=== PATIENT | female | born 1985 | race African-American/Black ===

== ENCOUNTER 2016-10-07 08:27 | Emergency (ER) | payer SELFPAY ==
[~2016-10-07] VITALS: Ht 170.2 cm; Wt 81.6 kg
[~2016-10-07 08:27] MED LIST: PHENERGAN SUPP25 MG RECTAL; ZOFRAN4 MG ORAL
[2016-10-07 09:23] VITALS: BP 104/64
[2016-10-07] MEDS ORDERED: Acetaminophen 500mg (ES) tab ORAL ONE (09:30)
[2016-10-07 10:26] LABS: APPEARANCE,URINE CLOUDY; KETONES,URINE 3+ (NEGATIVE); LEUKOCYTE ESTERASE ,URINE 3+ (NEGATIVE); NITRITE,URINE NEGATIVE (NEGATIVE); PH,URINE 6 (4.5-8.0); PROTEIN,URINE 3+ (NEGATIVE); UROBILINOGEN,URINE NORMAL MG/DL (0.0-1.0)
[2016-10-07 10:42] LABS: BACTERIA,URINE FEW /HPF; SQUAMOUS EPITHELIAL CELL,UR FEW /LPF (NONE/OCC); WBC,URINE TNTC /HPF (0 - 2)
[2016-10-07] MEDS ORDERED: cefTRIAXone 1 GM in NS 55 ML IVPB ONE (12:00)
--- NOTE | 2016-10-07 13:46 | Emergency Room Report ---
History of Present Illness General Chief Complaint: Pain Source: Patient Present Illness HPI This patient complains of 4 days of nausea, vomiting and diarrhea. She states that she is also developed flank pain over the past couple days on her right side. She denies fever but has had some chills. She denies chest pain or shortness of breath. She denies dysuria or hematuria. Her last menstrual period was the second of this month. She does not suspect hCG. Allergies: Coded Allergies: ERYTHROMYCIN BASE (Unverified Allergy, Unknown, 01/04/15) Patient History Past Medical History: none, see triage record Social History: Denies: alcohol use, drug use, smoking Last Menstrual Period: 09/24/16 Now: No Reviewed Nursing Documentation: PMH: Agreed, PSxH: Agreed Nursing Documentation-PMH Past Medical History: No Stated History Review of Systems All Other Systems: negative except mentioned in HPI Physical Exam Vital Signs Date Time Temp Pulse Resp B/P Pulse Ox O2 Delivery O2 Flow Rate FiO2 10/07/16 08:33 98.4 117 14 114/68 96 Room Air Sp02 EP Interpretation: reviewed, normal General Appearance: no apparent distress, alert, GCS 15, non-toxic Head: normocephalic, atraumatic Eyes: bilateral eye PERRL, bilateral eye normal inspection ENT: hearing grossly normal, normal pharynx, no angioedema, normal voice Neck: full range of motion, supple/symm/no masses Respiratory: chest non-tender, lungs clear, normal breath sounds, speaking full sentences Cardiovascular #1: regular rate, rhythm, no edema Gastrointestinal: normal bowel sounds, non tender, soft, non-distended, no guarding, no rebound Rectal: deferred Genitourinary: CVA tenderness (R) Musculoskeletal: back normal, gait/station normal, normal range of motion, non- tender Neurologic: alert, oriented x3, responsive, motor strength/tone normal, sensory intact, speech normal Psychiatric: judgement/insight normal, memory normal, mood/affect normal, no suicidal/homicidal ideation Skin: normal color, no rash, warm/dry, well hydrated Medical Decision Making Diagnostic Impression: Primary Impression: Pyelonephritis ER Course This patient presents with pyelonephritis. I did give the patient a dose of IV Rocephin. She had improvement in her symptoms. She was also given Zofran IV. Discussion with the patient she would like to try oral antibiotics at home versus admission to the hospital. The patient is well appearing overall. She did get IV dose of antibiotics. I educated the patient to return immediately for worsening symptoms or persistent symptoms. She indicated understanding and intention to do so. She is given close return precautions and followup instructions. Labs Test 10/07/16 09:49 Urine Color Pale yellow Urine Appearance Cloudy Urine pH 6 (4.5-8.0) Urine Specific [place] 1.015 (1.005-1.035) Urine Protein 3+ (NEGATIVE) Urine Glucose (UA) Negative (NEGATIVE) Urine Ketones 3+ (NEGATIVE) Urine Occult Blood 5+ (NEGATIVE) Urine Nitrite Negative (NEGATIVE) Urine Bilirubin Negative (NEGATIVE) Urine Urobilinogen Normal MG/DL (0.0-1.0) Urine Leukocyte Esterase 3+ (NEGATIVE) Urine RBC 5-10 /HPF (0 - 2) Urine WBC Tntc /HPF (0 - 2) Urine Squamous Epithelial Cells Few /LPF (NONE/OCC) Urine Bacteria Few /HPF (NONE) Urine HCG, Qualitative Negative Last Vital Signs Date Time Temp Pulse Resp B/P Pulse Ox O2 Delivery O2 Flow Rate FiO2 10/07/16 09:23 98.6 86 18 104/64 100 Room Air Status: improved Disposition: HOME, SELF-CARE Condition: Improved Referrals: NOT CHOSEN BO/,REFERRING (PCP) PING TREJO D.O. Oct 07, 2016 13:46
[2016-10-07] MEDS ORDERED: NITROFURANTOIN100 M2 ORAL (14:08)
[2016-10-07] MEDS ORDERED: ZOFRAN ODT4 MG ORAL (14:08)
[2016-10-07 14:22] VITALS: BP 109/69
== END 2016-10-07 14:25 | disposition home or self-care (01) ==
LOC: EMR 09:28
DX: N12 Tubulo-interstitial nephritis, not specified as acute or chronic (principal); Z88.1 Allergy status to other antibiotic agents
CPT/HCPCS: 81003; 81025; 87086; 87181; 96374

== ENCOUNTER 2017-02-03 17:00 | Emergency (ER) | payer SELFPAY ==
[~2017-02-03] VITALS: Ht 167.6 cm; Wt 77.1 kg
[~2017-02-03 17:00] MED LIST changes: +NITROFURANTOIN100 M2 ORAL; +ZOFRAN ODT4 MG ORAL
[2017-02-03 17:13] VITALS: BP 130/90
[2017-02-03] MEDS ORDERED: Fluorescein Strips RIGHT EYE ONE (17:30)
[2017-02-03] MEDS ORDERED: Tetracaine 0.5% Opth Soln RIGHT EYE ONE (17:30)
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
[2017-02-03] MEDS ORDERED: OCUFLOX5 ML OP (17:42)
[2017-02-03] MEDS ORDERED: TYLENOL EXTRA500 MG ORAL (17:42)
[2017-02-03 18:01] VITALS: BP 118/78
== END 2017-02-03 18:02 | disposition home or self-care (01) ==
LOC: EMR 17:30
DX: H57.11 Ocular pain, right eye (principal); S05.01XA Injury of conjunctiva and corneal abrasion without foreign body, right eye, initial encounter; S05.12XA Contusion of eyeball and orbital tissues, left eye, initial encounter; Y08.89XA Assault by other specified means, initial encounter; Y92.89 Other specified places as the place of occurrence of the external cause; Z88.1 Allergy status to other antibiotic agents
CPT/HCPCS: 99284

== ENCOUNTER 2017-07-11 19:00 | Emergency (ER) | payer SELFPAY ==
[~2017-07-11] VITALS: Ht 170.2 cm; Wt 83.9 kg
[~2017-07-11 19:00] MED LIST changes: +OCUFLOX5 ML OP; +TYLENOL EXTRA500 MG ORAL
[2017-07-11 20:59] LABS: BASOPHILS % (AUTO) 0.5 % (0.0-2.0); EOSINOPHILS % (AUTO) 0.5 % (0.0-3.0); MEAN CORPUSCULAR HEMOGLOBIN 25.7 PG (27.0-31.0); MEAN CORPUSCULAR HGB CONC 30.4 G/DL (32.0-36.0); MEAN CORPUSCULAR VOLUME 84 FL (80-99); MEAN PLATELET VOLUME 6.3 FL (6.5-10.1); MONOCYTES % (AUTO) 5.7 % (1.0-10.0); NEUTROPHILS % (AUTO) 80.4 % (45.0-75.0); PLATELET COUNT 301 K/UL (150-450); RED BLOOD COUNT 4.17 M/UL (4.20-5.40); RED CELL DISTRIBUTION WIDTH 12.9 % (11.6-14.8); WHITE BLOOD COUNT 11.3 K/UL (4.8-10.8)
[2017-07-11 21:03] LABS: APPEARANCE,URINE CLEAR; KETONES,URINE 2+ (NEGATIVE); LEUKOCYTE ESTERASE ,URINE 1+ (NEGATIVE); NITRITE,URINE NEGATIVE (NEGATIVE); PH,URINE 6 (4.5-8.0); PROTEIN,URINE 2+ (NEGATIVE); UROBILINOGEN,URINE NORMAL MG/DL (0.0-1.0)
[2017-07-11 21:17] LABS: ANION GAP 6 mmol/L (5-15); CALCIUM 9.4 MG/DL (8.5-10.1); CARBON DIOXIDE 29 MMOL/L (21-32); CHLORIDE 101 MMOL/L (98-107); CREATININE 0.8 MG/DL (0.55-1.30); GLOMERULAR FILTRATION RATE > 60 mL/min (>60); INR 0.9 (0.9-1.1); POTASSIUM 3.6 MMOL/L (3.5-5.1); PROTHROMBIN TIME 9.4 SEC (9.30-11.50); SODIUM 136 MMOL/L (136-145)
[2017-07-11 21:20] LABS: BACTERIA,URINE FEW /HPF; SQUAMOUS EPITHELIAL CELL,UR MODERATE /LPF (NONE/OCC)
[2017-07-11 21:21] LABS: ALANINE AMINOTRANSFERASE 21 U/L (12-78); ALBUMIN/GLOBULIN RATIO 0.6 (1.0-2.7); ASPARTATE AMINO TRANSFERASE 17 U/L (15-37)
[2017-07-11 22:19] VITALS: BP 105/66
--- NOTE | 2017-07-11 22:30 | Emergency Room Report ---
History of Present Illness General Chief Complaint: Nausea Source: Patient, Medical Record Present Illness HPI The patient is a 31-year-old female currently at approximately 8 weeks gestation presenting for nausea and vomiting. She states that she had these symptoms throughout her first 2 pregnancies as well. She denies any abdominal pain, vaginal bleeding, or vaginal discharge. She had an abdominal ultrasound last week which showed an IUP. She has tried Reglan at home which helps. She denies any other symptoms including fever, chills, dizziness, blurred vision, swelling, shortness of breath, chest pain Allergies: Coded Allergies: ERYTHROMYCIN BASE (Unverified Allergy, Unknown, 01/04/15) Patient History Past Medical History: see triage record Pertinent Family History: none Last Menstrual Period: 05/09/17 Now: Yes - 8 weeks : 2 Para: 2 Reviewed Nursing Documentation: PMH: Agreed, PSxH: Agreed Nursing Documentation-PMH Past Medical History: No Stated History Review of Systems All Other Systems: negative except mentioned in HPI Physical Exam Vital Signs Date Time Temp Pulse Resp B/P (MAP) Pulse Ox O2 Delivery O2 Flow Rate FiO2 07/11/17 19:23 99.0 102 15 105/66 98 Room Air Sp02 EP Interpretation: reviewed, normal General Appearance: no apparent distress, alert, GCS 15, non-toxic Head: normocephalic, atraumatic Eyes: bilateral eye normal inspection, bilateral eye PERRL ENT: hearing grossly normal, normal pharynx, no angioedema, normal voice Neck: full range of motion, supple/symm/no masses Respiratory: chest non-tender, lungs clear, normal breath sounds, speaking full sentences Musculoskeletal: back normal, gait/station normal, normal range of motion, non- tender Neurologic: alert, oriented x3, responsive, motor strength/tone normal, sensory intact, speech normal Psychiatric: judgement/insight normal, memory normal, mood/affect normal, no suicidal/homicidal ideation Skin: normal color, no rash, warm/dry, well hydrated Medical Decision Making PA Attestation Dr. Wright is my supervising physician. Patient management was discussed with my supervising physician Diagnostic Impression: Primary Impression: Nausea/vomiting in ER Course The patient is a 31-year-old female currently at approximately 8 weeks gestation presenting for nausea and vomiting Differential diagnoses considered include but not limited to Early , threatened , ectopic , hemorrhagic cyst, hyperemesis gravidarum , among others PE: Vitals stable. NAD. Abdomen: Normal appearance. Non distended. No ecchymosis. Normal BS. Non TTP. No McBurney point tenderness. No guarding. No CVA tenderness Labs There is a slight leukocytosis. CMP unremarkable Urinalysis: There is few bacteria. Otherwise unremarkable The patient is given IV fluids. She declined zofran. She feels better and will be ND'ed home. She has reglan at home which she will take. She has appt with OB next week. ER precautions given Laboratory Tests Test 07/11/17 20:13 White Blood Count 11.3 K/UL (4.8-10.8) H Red Blood Count 4.17 M/UL (4.20-5.40) L Hemoglobin 10.7 G/DL (12.0-16.0) L Hematocrit 35.2 % (37.0-47.0) L Mean Corpuscular Volume 84 FL (80-99) Mean Corpuscular Hemoglobin 25.7 PG (27.0-31.0) L Mean Corpuscular Hemoglobin Concent 30.4 G/DL (32.0-36.0) L Red Cell Distribution Width 12.9 % (11.6-14.8) Platelet Count 301 K/UL (150-450) Mean Platelet Volume 6.3 FL (6.5-10.1) L Neutrophils (%) (Auto) 80.4 % (45.0-75.0) H Lymphocytes (%) (Auto) 13.0 % (20.0-45.0) L Monocytes (%) (Auto) 5.7 % (1.0-10.0) Eosinophils (%) (Auto) 0.5 % (0.0-3.0) Basophils (%) (Auto) 0.5 % (0.0-2.0) Prothrombin Time 9.4 SEC (9.30-11.50) Prothrombin Time INR 0.9 (0.9-1.1) PTT 25 SEC (23-33) Urine Color Yellow Urine Appearance Clear Urine pH 6 (4.5-8.0) Urine Specific [place] 1.020 (1.005-1.035) Urine Protein 2+ (NEGATIVE) H Urine Glucose (UA) Negative (NEGATIVE) Urine Ketones 2+ (NEGATIVE) H Urine Occult Blood 1+ (NEGATIVE) H Urine Nitrite Negative (NEGATIVE) Urine Bilirubin Negative (NEGATIVE) Urine Urobilinogen Normal MG/DL (0.0-1.0) Urine Leukocyte Esterase 1+ (NEGATIVE) H Urine RBC 2-4 /HPF (0 - 2) H Urine WBC 2-4 /HPF (0 - 2) Urine Squamous Epithelial Cells Moderate /LPF (NONE/OCC) H Urine Bacteria Few /HPF (NONE) Sodium Level 136 MMOL/L (136-145) Potassium Level 3.6 MMOL/L (3.5-5.1) Chloride Level 101 MMOL/L (98-107) Carbon Dioxide Level 29 MMOL/L (21-32) Anion Gap 6 mmol/L (5-15) Blood Urea Nitrogen 9 mg/dL (7-18) Creatinine 0.8 MG/DL (0.55-1.30) Estimate Glomerular Filtration Rate > 60 mL/min (>60) Glucose Level 101 MG/DL (74-106) Calcium Level 9.4 MG/DL (8.5-10.1) Total Bilirubin 0.1 MG/DL (0.2-1.0) L Aspartate Amino Transferase (AST) 17 U/L (15-37) Alanine Aminotransferase (ALT) 21 U/L (12-78) Alkaline Phosphatase 78 U/L (46-116) Total Protein 8.0 G/DL (6.4-8.2) Albumin 3.0 G/DL (3.4-5.0) L Globulin 5.0 g/dL Albumin/Globulin Ratio 0.6 (1.0-2.7) L Human Chorionic Gonadotropin, Quant 264195 mIU/mL (1-6) H Lab Results Impression There is a slight leukocytosis. CMP unremarkable Urinalysis: There is few bacteria. Otherwise unremarkable Last Vital Signs Date Time Temp Pulse Resp B/P (MAP) Pulse Ox O2 Delivery O2 Flow Rate FiO2 07/11/17 19:23 99.0 102 15 105/66 98 Room Air Status: improved Disposition: HOME, SELF-CARE Condition: Improved Patient Instructions: First Trimester of Additional Instructions: I discussed my findings with the patient. All questions and concerns have been answered. Treatment and medication compliance have been addressed. Return to ED if symptoms worsen, new symptoms arise, or if needed for any reason. Patient verbalized understanding of discharge instructions. Please follow up with your OB as discussed for ultrasound and further care. VICENTE MORAN Jul 11, 2017 22:30
== END 2017-07-12 01:42 | disposition home or self-care (01) ==
LOC: EMR 19:40
DX: O26.891 Other specified pregnancy related conditions, first trimester (principal); Z3A.08 8 weeks gestation of pregnancy; R11.2 Nausea with vomiting, unspecified
CPT/HCPCS: 36415; 80053; 81003; 84702; 85025; 85610; 85730; 96361; 96374; 99284; J2405

== ENCOUNTER 2017-10-16 07:41 | Emergency (ER) | payer SELFPAY ==
[~2017-10-16] VITALS: Ht 170.2 cm; Wt 92.5 kg
[2017-10-16 08:00] VITALS: BP 107/63
[2017-10-16] MEDS ORDERED: PRENATAL LOW I1 EACH PO (08:05)
--- NOTE | 2017-10-16 08:47 | Emergency Room Report ---
History of Present Illness General Chief Complaint: Upper Respiratory Illness Source: Patient Present Illness HPI Patient is 5 and one-half months . She presents with sore throat and losing her voice. She denies any cough at this time. There is no nausea vomiting or diarrhea. She denies any dysuria. The baby is kicking. There is no discharge. She denies any rashes. She denies any fevers or chills. The pain is 3-5/10. It's burning and worse when she swallows however she is able to tolerate oral intake. The patient states her previous evaluation of thyroid function tests have been normal. The patient is anemic. She is taking vites at this time. She's here with her son who has otitis media. Checked by OB 2 days ago and things are going well. Allergies: Coded Allergies: ERYTHROMYCIN BASE (Unverified Allergy, Unknown, 01/04/15) Patient History Past Medical History: see triage record Social History: Denies: smoking, alcohol use, drug use Social History Narrative with son Now: Yes Reviewed Nursing Documentation: PMH: Agreed; PSxH: Agreed Nursing Documentation-PMH Past Medical History: No Stated History Review of Systems All Other Systems: negative except mentioned in HPI Physical Exam Vital Signs Date Time Temp Pulse Resp B/P (MAP) Pulse Ox O2 Delivery O2 Flow Rate FiO2 10/16/17 08:00 98.0 99 18 107/63 97 Room Air 98.1 FHT 120 Sp02 EP Interpretation: reviewed, normal General Appearance: well appearing, no apparent distress, GCS 15 Head: normocephalic, atraumatic Eyes: bilateral eye PERRL, bilateral eye conjunctivae pale ENT: moist mucus membranes, pharyngeal erythema, other - goiter larger on L, some hoarseness, no exudates Neck: full range of motion, supple Respiratory: lungs clear, normal breath sounds, no respiratory distress, speaking full sentences Cardiovascular #1: normal peripheral pulses Gastrointestinal: normal inspection, normal bowel sounds, other - gravid Genitourinary: no CVA tenderness Musculoskeletal: no calf tenderness Neurologic: alert, normal gait, grossly normal Psychiatric: mood/affect normal Skin: no rash Medical Decision Making Diagnostic Impression: Primary Impression: Pharyngitis Qualified Codes: J02.9 - Acute pharyngitis, unspecified Additional Impression: 5 months ER Course Patient presents with sore throat and change in her voice. Differential includes pharyngitis, laryngitis, strep throat, viral amongst others. She's also 5-1/2 months . She denies any symptoms at this time. Based on her physical exam this looks more viral and she will be treated symptomatically. The goiter was discussed with the patient. She was quite anxious about that as friend had thyroid problem. I reassured her. The patient is stable for outpatient observation and treatment. Last Vital Signs Date Time Temp Pulse Resp B/P (MAP) Pulse Ox O2 Delivery O2 Flow Rate FiO2 10/16/17 09:20 98.2 74 19 110/70 98 Room Air 98.2 Status: improved Disposition: HOME, SELF-CARE Condition: Improved Scripts Acetaminophen (Tylenol) 325 Mg Tablet 650 MG ORAL Q6H PRN for Prn Pain/Headache/Temp > 101, #30 TAB 0 Refills Prov: Markus Camarillo M.D. 10/16/17 Markus Camarillo M.D. Oct 16, 2017 08:47
[2017-10-16] MEDS ORDERED: TYLENOL325 MG ORAL (08:53)
[2017-10-16 09:20] VITALS: BP 110/70
== END 2017-10-16 09:20 | disposition home or self-care (01) ==
LOC: EMR 08:10
DX: O26.892 Other specified pregnancy related conditions, second trimester (principal); J02.9 Acute pharyngitis, unspecified
CPT/HCPCS: 99283